=== PATIENT | female | born 1965 | race Caucasian/White ===

== ENCOUNTER 2020-12-28 08:30 | Outpatient (REF) | payer OTHER, SELFPAY ==
[2020-12-28 10:22] LABS: Hematocrit 40.6 % (37-47); Hemoglobin 13.7 g/dl (12.0-16.0); Mean Corpuscular HGB Conc 33.7 g/dl (31.0-35.0); Mean Corpuscular Hemoglobin 30.5 pg (27.0-33.0); Mean Corpuscular Volume 90.4 fL (80-98); Mean Platelet Volume 10.4 fL (9.4-12.3); Platelet Count 239 X10*3/uL (160-400); Red Blood Count 4.49 X10*6/uL (4.20-5.50); Red Cell Distribution Width 12.2 % (11.0-16.0); White Blood Count 5.7 X10*3/uL (4.8-10.8)
[2020-12-28 11:05] LABS: Alanine Aminotransferase 29 U/L (0-31); Albumin Level 4.8 g/dL (3.5-5.0); Alkaline Phosphatase 68 U/L (39-117); Anion Gap 15 (12-20); Aspartate Amino Transferase 19 U/L (5-31); Bilirubin Total 0.7 mg/dL (0.0-1.0); Blood Urea Nitrogen 14 mg/dL (9-16); Calcium 9.7 mg/dL (8.4-10.2); Carbon Dioxide 27 mmol/L (22-29); Chloride 102 mmol/L (96-108); Cholesterol 262 mg/dL; Estimated Glomerular Filt Rate > 60; Glucose Fasting 86 mg/dL (60-99); HDL Cholesterol 46 mg/dL; LDL Cholesterol Calculated 170 mg/dl; Magnesium 2.1 mg/dL (1.6-2.6); Potassium 4.7 mmol/L (3.3-5.1); Sodium 139 mmol/L (135-145); Total Protein 7.7 g/dL (6.5-8.0); Triglycerides 231 mg/dL
[2020-12-28 11:10] LABS: TSH reflex Free T4 1.11 uIU/mL (0.32-4.0); Vitamin D 25-OH Total 13.4 ng/mL (>30)
== END 2020-12-28 08:31 | disposition home or self-care (01) ==
LOC: HO.LAB 08:30
PROVIDERS: Visit Provider Internal Medicine
DX: Z00.00 Encounter for general adult medical examination without abnormal findings (principal); Z13.220 Encounter for screening for lipoid disorders; Z13.29 Encounter for screening for other suspected endocrine disorder
CPT/HCPCS: 36415; 80053; 80061; 82306; 83735; 84443; 85027

== ENCOUNTER → 2020-12-31 13:13 | Outpatient (BNVA) | payer OTHER, SELFPAY | PROVIDERS: PCP Internal Medicine; Visit Provider Nurse Practitioner Family ==

== ENCOUNTER 2021-02-05 17:00 | Outpatient (RCR) | payer OTHER, SELFPAY ==
--- NOTE | 2020-12-25 16:04 | MHC.PT.EP ---
[facility] [place] Office [place] Office [place] Office [address] Jose Castano [address] [phone] F: [phone] F: [phone] F: [phone] F: [phone] Physical Therapy Plan of Care Date of Evaluation: 12/25/20 Date of Surgery: Diagnosis: LEFT HIP BURSITIS Assessment: 55 YO FEMALE REF TO PT W 2 YR H/O LEFT HIP BURSITIS- INSIDUOUS ONSET PER Pt. 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 H/O LEFT KNEE SURG YRS AGO. OBJECTIVE FINDINGS: DECR ROM Lt HIP AND HS FLEXIB, (+) PELVIC ASYMM CREATING LLI, (+) TENDERNESS IN Lt ITB AND TROCH REGION. FUNCTIONALLY, Pt HAS LIMITED MONIQUE TO Lt SL, CARRYING OBJECTS W STAIR MGMT, INCR GAIT- SHE NOTES PAIN PERSISTS BUT SHE IS ABLE TO PERFORM ADLs, AND FUNCTIONAL SQUATS. Pt IS A GOOD PT CANDIDATE TO DEV HEP, PAIN MGMT, SELF-SX MGMT, AND IMPROVE FUNCTIONAL INDEP. Frequency and Duration: The patient will be seen 2x WK x 5 WKS Short Term Goals: Pt'S PAIN DECR TO 2-3/10 IN Lt HIP IN 2 WKS Pt DEMON IMPROVED PELVIC SYMMETRY W REDUCED LLI ON 2 WKS Pt DMEON IMPROVED/WFL HIP FLEXIB AND LEFT HS FLEXIB IN 2 WKS Sas Analyst Goals: Pt INDEP HEP FOR STRENGTH AND FLEXIB AND SELF- SX MGMT IN 5 WKS Pt RESUME REG ADLs AND SIMUL KAYAKING EVIDENT IN IMPROVED LEFT BY 8 POINTS (65/80- AT EVAL) IN 5 WKS Treatment Plan: Modalities to reduce pain, spasms and effusion. Manual therapy to restore motion and function. Therapeutic exercise to improve strength and flexibility. Neuromuscular re-education for posture and balance. Therapeutic activities to return to functional activities of daily living. Electronically signed by: Margaret Godinez, pt Please sign and return to therapist. Thank you for your referral.
--- NOTE | 2021-02-06 13:28 | MHC.PT.DC ---
[facility] [place] Office [place] Office [place] Office [address] Jose Castano [address] [phone] F: [phone] F: [phone] F: [phone] F: [phone] Physical Therapy Discharge Report Diagnosis: LEFT HIP BURSITIS Date of Surgery: Date of Evaluation: 12/25/20 Date of Discharge: 02/06/21 Treatments to Date: 9 Cancellations to Date: 0 No Shows to Date: 0 Discharge Status: Improved Function Independent with HEP Recommend MD Follow-up Discharge Summary: Pt HAS PROGRESSED IN PT- HER GAIT MECH, FLEXIBILITY, AND PELVIC STABILITY HAVE ALL IMPROVED- SHE HAS RESIDUAL GLUTE WEAKNESS AND ITB IRRITABILITY, ADDRESSING W HEP. Pt HAS RECENTLY INCR HER ACTIVITY LEVEL W YARDWORK, OUTDOOR CHORES AND NOTES EXACERBATION OF Lt HIP SXS- SHE IS CONCERNED ABOUT THE INTEGRITY OF HER Lt HIP- WE HAVE ENCOURAGED HEP COMPLIANCY TO ADDRESS WEAKNESS AND GRAD INCR IN MORE PHYSICALLY DEMANDING FUNCTIONAL TASKS. Pt PREFERS D/C FROM PT AND WILL F/U W MD. Electronically signed by: Margaret Godinez,PT Please sign and return to therapist. Thank you for your referral.
== END 2021-02-06 13:31 | disposition other institution (70) ==
LOC: HO.PTCHIC 17:00
PROVIDERS: PCP Internal Medicine; Visit Provider Internal Medicine
DX: M71.9 Bursopathy, unspecified (principal)
CPT/HCPCS: 97110; 97140; 97161

== ENCOUNTER 2021-02-11 07:29 | Day surgery (SDC) | payer OTHER, SELFPAY ==
--- NOTE | 2021-02-06 14:45 | HO.ANESPROP2 ---
Documented by User: Marely Vogt 02/06/21 14:45 HPI - Anesthesia Eval Consult details Narrative: 55yo F for Colonoscopy PMFSH Active Problems Active Problems: All Active Problems (Updated 01/07/21 @ 13:57 by Nanda Mclalister MD) Vitamin D deficiency (Acute) Hyperlipidemia (Acute) Diarrhea (Acute) Bursitis (Acute) Mammogram normal (Acute) Normal Pap smear (Acute) Annual physical exam (Acute) Past Medical History Medical History Annual physical exam Bursitis Diarrhea GERD (gastroesophageal reflux disease) Hyperlipidemia Mammogram normal Normal Pap smear Vitamin D deficiency Family History Family History Father No problems noted. 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 Allergies Allergy/AdvReac Type Severity Reaction Status Date / Time No Known Allergies Allergy Verified 02/04/21 13:22 Exam Airway Mallampati Class: I (Edentulous) TM Dist: >3cm Neck ROM: Full Denture: Upper and Lower Loose/Missing/Broken Teeth: Yes, Upper and Lower Heart: RRR Lungs: CTA Assessment and Plan Assessment Anesthesia Assessment: Anesthesia Plan Discussed and Chart Reviewed Final Anesthetic Review NPO: Yes ASA Class: II Final Preanesthetic Review: Meds/Allgs Chart Reviewed, Consent Obtained/Reviewed and Anes Risks/Benef Reviewed Patient Risk: Low Procedure Risk: Low Anesthetic Plan Anesthetic Plan: MAC: Disposition: Standard PACU
[2021-02-11 07:57] VITALS: BP 149/62; PULSE 67; RESP 16; TEMP 36.9; O2SAT 97; BMI 29.3
[2021-02-11] MEDS: Lactated Ringers 1,000 ML 100 ML IVCONT (08:13)
--- NOTE | 2021-02-11 08:19 | P.HPSUR_ITS ---
Pre-Procedural Eval Section B Chief Complaint: screening Details of Present Illness: Colon cancer screening Diarrhea since GB out, mostly postprandial Relevant Family History (Specify if Yes): No Relevant Social History: None Present Medications: see Short Stay Collaborative assessment Medical History: Significant History (GERD) History of Previous Operations: No relevant previous surgery Allergies: Allergies Allergy/AdvReac Type Severity Reaction Status Date / Time No Known Allergies Allergy Verified 02/04/21 13:22 Review of Systems Sugical H&P ROS: Negative: Constitution, Cardiovascular, Respiratory, Gastrointestinal and Musculoskeletal Exam Surgical H&P Exam: Normal: HEENT, Normal: Heart, Normal: Lungs, Normal: Extremities and Normal: Abdomen and Significant Findings: Skin (pressure induced erythema ? histamine release.) Plan Diagnosis/Plan: Unchanged I have reviewed the history and physical and performed a pertinent physical examination on my patient. No changes have occurred unless sp ecified.YES
[2021-02-11 08:55] VITALS: BP 117/52; PULSE 69; RESP 18; TEMP 37.2; O2SAT 98
--- NOTE | 2021-02-11 08:56 | PM.OP ---
Brief Operative Note Date of Service: 02/11/21 Pre-op diagnosis: Colon cancer screening Hx of diarrhea--? bile salt induced Post-op diagnosis: other (Diverticulosis) Procedure: Colonoscopy with biopsies R & L colon Implants: NONE Surgeon: Connie Scherer MD Anesthesia: MAC (md Jose) Estimated blood loss (mL): 5 Pathology: other (Right colon, Left colon) Condition: stable Disposition: PACU
[2021-02-11 09:10] VITALS: BP 137/62; PULSE 69; RESP 16; TEMP 37.2; O2SAT 97
--- NOTE | 2021-02-11 12:35 | W.PM.OPN ---
Operative Note Operative Note Date of Service: 02/11/21 Narrative: Pre-op diagnosis: Colon cancer screening Hx of diarrhea--? bile salt induced Post-op diagnosis: Diverticulosis/Hx of diarrhea Procedure: Colonoscopy with biopsies R & L colon Implants: NONE Surgeon: Connie Scherer MD Anesthesia: MAC (MD Jose) FINDINGS: CYNTHIA-Adequate sphincter tone. Adult slim colonoscope was introduced without difficulty. It was advanced from rectosigmoid on up. In sigmoid area a number diverticuli were seen. There was moderate residual of turbid fluid requiring additional flushing and suctioning of about 3-500cc of fluid. Destination was made in the cecum. Appendiceal orifice, ileocecal valve were seen. No mucosal Abnormalities had been seen. Slow withdrawal of scope, good rotational views no new findings were noted. ARV was clear. Estimated blood loss (mL): 5 Pathology: other (Right colon, Left colon) Condition: stable Disposition: PAC PLAN: REPEAT ASYMPTOMATIC SCREENING IN 10 YRS. OFFICE VISIT TO BE OFFERED TO REVIEW BX AND ADDRESS PATIENTS DIARRHEAL EPISODES IF SHE WOULD LIKE.
== END 2021-02-11 09:50 | disposition home or self-care (01) ==
PROVIDERS: PCP Internal Medicine; Visit Provider Internal Medicine Gastroenterology
PROC: 0DJD8ZZ Inspection of Lower Intestinal Tract, Via Natural or Artificial Opening Endoscopic (ICD-10-PCS; CPT 45378; principal; 2021-02-11 08:30)
DX: Z12.11 Encounter for screening for malignant neoplasm of colon (principal); K57.30 Diverticulosis of large intestine without perforation or abscess without bleeding; K21.9 Gastro-esophageal reflux disease without esophagitis; Z90.49 Acquired absence of other specified parts of digestive tract; Z79.899 Other long term (current) drug therapy; Z87.891 Personal history of nicotine dependence
CPT/HCPCS: 45380; 88305

== ENCOUNTER 2021-02-25 07:52 | Outpatient (REF) | payer OTHER, SELFPAY ==
--- NOTE | ~2021-02-25 | XR_ITS ---
EXAMINATION: XR HIP, LEFT CLINICAL INFORMATION: Pain left hip. COMPARISON: None TECHNIQUE: Two views of the left hip. AP view of pelvis. FINDINGS: AP PELVIS: There is mild loss of bilateral hip joint space without bony erosive changes. The soft tissues are normal. The SI joints are normal. There is a solitary surgical staple in the left pelvis. No soft tissue abnormality is seen. LEFT HIP: AP and frog-leg view left hip reveals no fracture, dislocation or bony erosive changes. No loose body is seen. Minimal loss of left hip joint space. The soft tissues are normal. XR/XR hip LT w PEL1V IMPRESSION: Minimal loss of bilateral hip joint spaces but no bony erosive changes or loose bodies. There is no acute fracture or dislocation in the left hip or in the pelvic bones.
== END 2021-02-25 07:53 | disposition home or self-care (01) ==
LOC: HO.HOSX 07:52
PROVIDERS: Visit Provider Orthopaedic Surgery
DX: M25.552 Pain in left hip (principal); M70.62 Trochanteric bursitis, left hip
CPT/HCPCS: 20610; 73502; 99202; J1040

== ENCOUNTER → 2021-03-07 12:49 | Outpatient (BNVA) | payer OTHER, SELFPAY | PROVIDERS: PCP Internal Medicine; Visit Provider Nurse Practitioner Family ==

== ENCOUNTER → 2021-04-21 12:10 | Outpatient (BNVA) | payer OTHER, SELFPAY | PROVIDERS: PCP Internal Medicine; Visit Provider Nurse Practitioner Family ==

== ENCOUNTER 2022-01-23 07:29 | Outpatient (REF) | payer OTHER, SELFPAY ==
--- NOTE | ~2022-01-23 | XR_ITS ---
EXAMINATION: XR SHOULDER, LEFT CLINICAL INFORMATION: Left shoulder pain. COMPARISON: None TECHNIQUE: Three views of the left shoulder. FINDINGS: The bones and soft tissues are normal. No fracture. Glenohumeral and acromioclavicular alignment is anatomic with normal joint space. No abnormal soft tissue calcifications. XR/XR shoulder LT min 2V IMPRESSION: Unremarkable radiographic appearance of the left shoulder.
== END 2022-01-23 07:30 | disposition home or self-care (01) ==
LOC: HO.HOSX 07:29
PROVIDERS: Visit Provider Physician Assistant
DX: M75.82 Other shoulder lesions, left shoulder (principal)
CPT/HCPCS: 20610; 73030; 99202; J1040

== ENCOUNTER → 2022-03-27 11:20 | Outpatient (BNVA) | payer OTHER, SELFPAY | PROVIDERS: PCP Internal Medicine; Visit Provider Physician Assistant | DX: M75.82 Other shoulder lesions, left shoulder (principal) | CPT/HCPCS: 99212 ==

== ENCOUNTER 2022-04-15 19:34 | Outpatient (REF) | payer OTHER, SELFPAY ==
--- NOTE | ~2022-04-15 | MR_ITS ---
EXAMINATION: MRI SHOULDER WITHOUT CONTRAST, LEFT CLINICAL INFORMATION: Left shoulder pain and decreased range of motion. COMPARISON: Left shoulder radiographs dated 01/23/2022. TECHNIQUE: Multisequence MR imaging of the left shoulder was obtained without contrast on a high-field strength scanner. FINDINGS: ROTATOR CUFF: Moderate supraspinatus tendinosis with posterior bursal surface partial tearing measuring 1.1 x 1.4 cm (AP by ML). No full-thickness rotator cuff tendon tear. No muscle atrophy or fatty infiltration. BICEPS: Normal. CORACOACROMIAL ARCH: The undersurface of the acromion is minimally curved with no subacromial spur. Moderate acromioclavicular osteoarthritis. LABRUM/CAPSULE: No displaced labral tear. Intact joint capsule. GLENOHUMERAL JOINT/MARROW: Mild articular cartilage signal heterogeneity with small marginal osteophytes. Trace joint effusion. MR/MR shoulder LT wo con IMPRESSION: 1. Moderate supraspinatus tendinosis with bursal surface partial tearing measuring 1.1 x 1.4 cm (AP by ML). No full-thickness rotator cuff tendon tear. 2. Moderate acromioclavicular osteoarthritis. 3. Mild glenohumeral osteoarthritis and trace joint effusion.
== END 2022-04-15 19:35 | disposition home or self-care (01) ==
LOC: HO.MRI 19:34
PROVIDERS: Visit Provider Physician Assistant
DX: S46.002A Unspecified injury of muscle(s) and tendon(s) of the rotator cuff of left shoulder, initial encounter (principal)
CPT/HCPCS: 73221

== ENCOUNTER 2022-04-21 14:06 | Outpatient (REF) | payer OTHER, SELFPAY ==
[2022-04-24 19:06] LABS: HPV mRNA E6/E7 rflx Not Detected (Not Detected)
== END 2022-04-21 14:07 | disposition home or self-care (01) ==
LOC: HO.LAB 14:06
PROVIDERS: Visit Provider Advanced Practice Midwife
DX: Z01.419 Encounter for gynecological examination (general) (routine) without abnormal findings (principal); Z11.51 Encounter for screening for human papillomavirus (HPV)
CPT/HCPCS: 87624; 88142

== ENCOUNTER → 2022-04-23 08:35 | Outpatient (BNVA) | payer OTHER, SELFPAY | PROVIDERS: PCP Internal Medicine; Visit Provider Orthopaedic Surgery | DX: M67.912 Unspecified disorder of synovium and tendon, left shoulder (principal) | CPT/HCPCS: 99212 ==

== ENCOUNTER 2022-06-26 10:11 | Outpatient (REF) | payer OTHER, SELFPAY ==
--- NOTE | ~2022-06-26 | MM_ITS ---
EXAMINATION: MM SCREENING DIGITAL BREAST TOMOSYNTHESIS, BILATERAL CLINICAL INFORMATION: Screening. Asymptomatic. The lifetime risk of breast cancer based on the Tyrer-Cuzick Model is 5%. COMPARISON: Outside mammography: 05/16/2020, 03/10/2019, 03/06/2019 ([facility]) TECHNIQUE: Digital breast tomosynthesis is performed in both the craniocaudal and mediolateral oblique views along with computer-aided detection (CAD). Synthesized 2D images are generated from the tomosynthesis. FINDINGS: There are scattered areas of fibroglandular density (ACR BI-RADS breast composition Category b). There are no significant masses, abnormal calcifications, or other abnormalities. A small cyst mid outer left breast has resolved. Parenchymal pattern is otherwise similar to prior studies. There is no developing density or architectural abnormality. The axilla are similar to prior studies. Skin contours are unremarkable. No significant changes. MM/MM tomosynthesis screening BI IMPRESSION: No mammographic evidence of malignancy. ASSESSMENT: BI-RADS 2: Benign RECOMMENDATION: Routine annual mammography screening. This patient's information was entered into a reminder system with a target due date for their next mammogram.
== END 2022-06-26 10:12 | disposition home or self-care (01) ==
LOC: HO.MAMMO 10:11
PROVIDERS: Visit Provider Obstetrics & Gynecology
DX: Z12.31 Encounter for screening mammogram for malignant neoplasm of breast (principal)
CPT/HCPCS: 77063; 77067

== ENCOUNTER 2024-03-04 07:35 | Outpatient (REF) | payer OTHER, SELFPAY ==
--- NOTE | ~2024-03-04 | XR_ITS ---
EXAMINATION: XR CHEST CLINICAL INFORMATION: Rule out nodules. COMPARISON: CT chest 05/10/2020. Chest radiograph 10/28/2016 and 08/13/2006. TECHNIQUE: 2 views of the chest were obtained. FINDINGS: There is no gross pneumothorax. Heart size is normal. Lung volumes are low. No pleural effusion. Surgical clips in the upper abdomen. Mild degenerative changes in the thoracic spine. Increased mild hazy opacities at the left lung base may represent an infectious/inflammatory process. XR/XR chest 2V IMPRESSION: Increased mild hazy opacities at the left lung base may represent an infectious/inflammatory process.
--- NOTE | ~2024-03-04 | XR_ITS ---
EXAMINATION: XR FINGER, RIGHT CLINICAL INFORMATION: Rule out foreign body second digit. COMPARISON: None available. TECHNIQUE: 3 views of the right second digit. Radiopaque marker placed by technologist to indicate area of concern indicated by the patient along the distal tuft of the second digit. FINDINGS: Moderate degenerative changes in the first carpometacarpal joint with joint space narrowing and hypertrophic change. Tiny ossific/calcific fragment overlies the first carpometacarpal joint. Moderate degenerative changes with hypertrophic change and joint space narrowing in the DIP and PIP joints of the second digit. Soft tissue swelling of the second digit. No radiopaque foreign body identified in the soft tissues of the second digit. No displaced fracture appreciated in the second digit. XR/XR finger RT min 2V IMPRESSION: 1. Moderate degenerative changes in the first carpometacarpal joint. 2. Moderate degenerative changes in the DIP and PIP joints of the second digit. 3. No radiopaque foreign body identified in the soft tissues of the second digit. 4. No displaced fracture appreciated in the second digit. 5. Recommend follow up imaging in 10-14 days if fracture is suspected.
== END 2024-03-04 07:36 | disposition home or self-care (01) ==
LOC: HO.MAMMO 07:35
PROVIDERS: PCP Internal Medicine; Visit Provider Internal Medicine
DX: Z12.31 Encounter for screening mammogram for malignant neoplasm of breast (principal); Z87.891 Personal history of nicotine dependence; M19.041 Primary osteoarthritis, right hand
CPT/HCPCS: 71046; 73140; 77063; 77067

== ENCOUNTER → 2024-03-04 07:45 | Outpatient (BNV) | payer OTHER, SELFPAY | PROVIDERS: PCP Internal Medicine; Visit Provider Radiology Diagnostic Radiology | DX: Z12.31 Encounter for screening mammogram for malignant neoplasm of breast (principal) | CPT/HCPCS: 77063; 77067 ==

== ENCOUNTER 2024-03-10 09:37 | Outpatient (AMB) | payer OTHER, SELFPAY ==
--- NOTE | 2024-03-10 09:56 | MHC.OFFVIS ---
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 She has a partial-thickness tear of her right supraspinatus. She has pain with daily activity, which she describes as a burning ache, that worsens with overhead activity. She takes NSAIDs for pain relief and attended PT several years ago. She received a steroid injection on 01/23/22, which gave some relief. Patient reports that her shoulder pain is worsening, the last injection has not helped her. Now that summer is approaching she is ready to move forward with surgical intervention as she has the summer off. Allergies No Known Allergies Allergy (Verified 04/21/22 13:46) HPI HPI OV - Left Shoulder RTC Dysfunction: Details: Anna is a 58-year-old woman with a history of a left rotator cuff tear. 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 She is tried injections and physical therapy and continues to have pain at night and pain with overhead activity. [facility] Medical History Shoulder pain, left Vitamin D deficiency Hyperlipidemia Diarrhea GERD (gastroesophageal reflux disease) Bursitis Mammogram normal Normal Pap smear Annual physical exam Surgical History Hx of colonoscopy Hx of laparoscopy Hx of cholecystectomy History of knee surgery History of foot surgery History of shoulder surgery Hx of prior ablation treatment Family History Father No problems noted. Mother Lung cancer Social History Household Members: Significant Other Household Members Other:: [employer], single, 2 adult children, son in [place] Alcohol intake: current Alcohol intake frequency: a few times a week Patient Tobacco Use Status: Former Tobacco user Years Smoked: 15 Current occupational status: employed Current occupation: [employer] Sexual orientation: Straight/Heterosexual Gender identity: Female Physical Exam Const General: cooperative, healthy appearing, no acute distress and well groomed Orientation/consciousness: oriented to person and oriented to place HEENT Head: Yes normal to inspection, Yes normocephalic and Yes atraumatic Eyes General: appearance normal, both eyes and all related structures Alignment and Position: alignment normal Conjunctivae: conjunctivae normal EOM: EOMs intact bilaterally Neck Neck: Yes normal visual inspection and Yes trachea midline Resp Other: No rerpiratory distress Effort & Inspection: normal respiratory effort and able to speak in complete sentences Cardio Other: Palpable radial pulse with no appreciable rythmic abnormalities GI Other: No abdominal distension Back/Spine/Pelvis Cervical Spine: normal cervical lordosis and cervical ROM normal Skin General skin exam: no rashes or lesions noted Neuro General: oriented to person, oriented to place and gait normal Extrem Other: Patient has 4+/5 empty can positive Begum and Neer. External rotation 45 degrees abduction to 90 and forward flexion to 130. She is limited internal rotation. She has a positive [place]'s and tenderness to palpation over the bicipital groove. Results Reviewed Results Reviewed: I personally reviewed relevant radiograph 1. Moderate supraspinatus tendinosis with bursal surface partial tearing measuring 1.1 x 1.4 cm (AP by ML). No full-thickness rotator cuff tendon tear. 2. Moderate acromioclavicular osteoarthritis. 3. Mild glenohumeral osteoarthritis and trace joint effusion. Assessment & Plan Assessment & Plan (1) Rotator cuff tear, left: Code(s): M75.102 - Unspecified rotator cuff tear or rupture of left shoulder, not specified as traumatic Category: Medical Plan: This is a 58-year-old woman with a high-grade partial-thickness rotator cuff tear and additional internal derangement of the shoulder appeared this been going on for years. She is left-hand dominant and can not function. She feels limited in her daily activities and is not sleeping at night. I recommend arthroscopic rotator cuff repair. I discussed this with her including the patho anatomy and the expected postop recovery time.I discussed the risks benefits and alternatives including but not limited to the risk of pain, infection, stiffness, need for further surgery as well as potential medical complications such as blood clots, pulmonary embolism and cardiac complications. She expressed understanding and we will proceed forward accordingly. Coding Level of Care Code Est Pt Level 4 (81772) Diagnoses Rotator cuff tear, left M75.102
== END 2024-03-10 10:32 | disposition home or self-care (01) ==
PROVIDERS: PCP Internal Medicine; Visit Provider Orthopaedic Surgery
DX: M75.102 Unspecified rotator cuff tear or rupture of left shoulder, not specified as traumatic (principal)
CPT/HCPCS: 99214

== ENCOUNTER → 2024-03-10 09:37 | Outpatient (BNVA) | payer MEDICAID, SELFPAY | PROVIDERS: PCP Internal Medicine; Visit Provider Orthopaedic Surgery | DX: M75.102 Unspecified rotator cuff tear or rupture of left shoulder, not specified as traumatic (principal) | CPT/HCPCS: 99212 ==

== ENCOUNTER 2024-04-06 09:45 | Outpatient (AMB) | payer OTHER, SELFPAY ==
--- NOTE | 2024-04-06 10:08 | MHC.OFFVIS ---
Vital Signs 04/06/24 10:10 Height 5 ft 6 in Weight 186 lb BMI 30.0 Handedness Left Intake Visit Reasons: Preop LT RTC 04/12/24 NE Intake Note: Anna is a 58 year old left hand dominant female who presents today for a pre op appointment s/p LT RTC 04/12/24 NE. Patient was fitted for the Ultra Sling in the office. Allergies No Known Allergies Allergy (Verified 04/06/24 10:09) HPI HPI Preop LT RTC 04/12/24 NE: Details: 58-year-old left hand dominant female who presents in the office today for her preoperative history and physical exam prior to a left shoulder rotator cuff repair to be performed on 04/12/[address] Jamin Flor. Patient has no known allergy history. Patient is not currently taking any medication. 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 Sexual orientation: Straight/Heterosexual Gender identity: Female Review of Systems Const All systems reviewed & are unremarkable except as noted in HPI and below Physical Exam Vital Signs: BMI result Body Mass Index 30.0 Const General: cooperative, healthy appearing, comfortable, no acute distress, well developed, alert and awake Orientation/consciousness: patient oriented x3 HEENT Head: Yes normal to inspection, Yes normocephalic and Yes atraumatic Eyes General: appearance normal, both eyes and all related structures Alignment and Position: alignment normal Conjunctivae: conjunctivae normal EOM: EOMs intact bilaterally Neck Neck: Yes normal visual inspection and Yes no lymphadenopathy Resp Other: No rerpiratory distress Effort & Inspection: normal respiratory effort and able to speak in complete sentences Cardio Other: Palpable radial pulse with no appreciable rythmic abnormalities Rate: regular rate Peripheral pulses: Peripheral pulses 2+ throughout GI Other: No abdominal distension Inspection: Yes normal to inspection Palpation (GI): Soft to palpation Back/Spine/Pelvis Cervical Spine: normal cervical lordosis and cervical ROM normal Skin General skin exam: no rashes or lesions noted Neuro General: patient oriented x3 Extrem Other: Left shoulder: Skin is clean, dry, and intact. Patient has 4+/5 empty can positive Begum and Neer. External rotation 45 degrees abduction to 90 and forward flexion to 130. She is limited internal rotation. She has a positive Lycoming's and tenderness to palpation over the bicipital groove. Psych Mental Status: mental status grossly normal Assessment & Plan Assessment & Plan (1) Rotator cuff tear, left: Comment: Isaura, partner [phone] Code(s): M75.102 - Unspecified rotator cuff tear or rupture of left shoulder, not specified as traumatic Category: Medical Plan Ms. Espinoza is a 58-year-old left hand dominant female who presents in the office today for her preoperative history and physical exam prior to a left shoulder rotator cuff repair to be performed on 04/12/[address] Jamin Flor. Patient has no known allergy history. Patient is not currently taking any medication. 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 We discussed the risks, benefits and alternatives to the surgery and the rehabilitation course. The risks include infection, bleeding, nerve injury, ongoing pain, swelling, and stiffness, perioperative risk of injury to bones and soft tissues, and blood clots. I have answered all questions and with their understanding they have consented to move forward with a left shoulder rotator cuff repair to be performed on 04/12/[address] Jamin Flor. Post operative medications were sent to the pharmacy, oxycodone-acetaminophen 5-325 mg (Percocet) PO Q4-6H PRN, quantity 42 tabs for 7 days and morphine ER 15 mg (MS Contin) PO Q12H PRN, quantity 6 tabs for 3 days, while in the office today. The patient was instructed that she should obtain the prescription prior to surgery but should not consume until after the procedure; as these should only be taken for post operative pain management. Should the patient take these medications before surgery, a refill will not be sent to the pharmacy until their scheduled refill date. Follow-up will be at the post operative appointment on 04/20/2024 at 2:00 pm, or sooner if needed. Patient was fitted for the Ultra sling while in the office today. Isaura, partner, , please call after surgery. Medications: New morphine ER (MS Contin) Partial Fill upon patient request. 15 mg PO Q12H 3 days 6 tabs 0RF oxycodone-acetaminophen 5-325 mg (Percocet) Partial Fill upon patient request. 1 tab PO Q4-6H 7 days PRN 42 tabs 0RF pain Patient Instructions: Scribed by Emily Fernando chief medical director, for Joceline Parish PA-C on 04/06/2024 at 9:48 am, EST. Coding Level of Care Code Global (88426) Diagnoses Rotator cuff tear, left M75.102
== END 2024-04-06 10:42 | disposition home or self-care (01) ==
PROVIDERS: PCP Internal Medicine; Visit Provider Physician Assistant
DX: M75.102 Unspecified rotator cuff tear or rupture of left shoulder, not specified as traumatic (principal)
CPT/HCPCS: 99024

== ENCOUNTER → 2024-04-06 09:45 | Outpatient (BNVA) | payer OTHER, SELFPAY | PROVIDERS: PCP Internal Medicine; Visit Provider Physician Assistant | DX: M75.102 Unspecified rotator cuff tear or rupture of left shoulder, not specified as traumatic (principal) | CPT/HCPCS: 99212 ==

== ENCOUNTER 2024-04-12 05:57 | Day surgery (SDC) | payer OTHER, SELFPAY ==
--- NOTE | 2024-04-10 15:05 | HO.ANESPROP2 ---
Documented by User: Marely Vogt NP 04/10/24 15:06 HPI - Anesthesia Eval Consult details Narrative: 58yo F for Left Arthroscopic Rotator Cuff Repair PMFSH Active Problems Active Problems: All Active Problems Rotator cuff tear, left (Acute) Rotator cuff dysfunction (Acute) Encounter for annual routine gynecological examination (Acute) Tendonitis of left rotator cuff (Acute) Shoulder pain, left (Acute) Puncture wound (Acute) Trochanteric bursitis, left hip (Acute) Vitamin D deficiency (Acute) Hyperlipidemia (Acute) Diarrhea (Acute) Bursitis (Acute) Mammogram normal (Acute) Normal Pap smear (Acute) Annual physical exam (Acute) Past Medical History Medical History Shoulder pain, left Vitamin D deficiency Hyperlipidemia Diarrhea GERD (gastroesophageal reflux disease) Bursitis Mammogram normal Normal Pap smear Annual physical exam Family History Family History Father No problems noted. 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, 2 adult children, son in [place] Alcohol intake: current Alcohol intake frequency: a few times a week Patient Tobacco Use Status: Current everyday Tobacco user Years Smoked: 15 Use of substances other than those prescribed or required for medical reasons: No Are you DNR?: No Advance Directives: No Advance Directives Information Provided: Yes Current occupational status: employed 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 Sexual orientation: Straight/Heterosexual Gender identity: Female Meds Allergies Allergy/AdvReac Type Severity Reaction Status Date / Time No Known Allergies Allergy Verified 04/06/24 10:09 Home Medications ?Medication ?Instructions ?Recorded ?Confirmed ?Last Taken ?Type atorvastatin 20 mg tablet 20 mg PO DAILY 04/06/24 Unknown History Exam Height,Weight and Vital Signs: Height 5 ft 6 in Weight 84.368 kg Assessment and Plan Assessment Anesthesia Assessment: Chart Reviewed Documented by User: Nimisha Suggs MD 04/12/24 08:00 PMFSH Past Medical History Medical History Shoulder pain, left Vitamin D deficiency Hyperlipidemia Diarrhea GERD (gastroesophageal reflux disease) Bursitis Mammogram normal Normal Pap smear Annual physical exam Family History Family History Father No problems noted. 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, 2 adult children, son in [place] Alcohol intake: current Alcohol intake frequency: a few times a week Patient Tobacco Use Status: Current everyday Tobacco user Years Smoked: 15 Use of substances other than those prescribed or required for medical reasons: No Are you DNR?: No Advance Directives: No Advance Directives Information Provided: Yes Current occupational status: employed 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 Sexual orientation: Straight/Heterosexual Gender identity: Female Meds Allergies Allergy/AdvReac Type Severity Reaction Status Date / Time No Known Allergies Allergy Verified 04/06/24 10:09 Home Medications ?Medication ?Instructions ?Recorded ?Confirmed ?Last Taken ?Type atorvastatin 20 mg tablet 20 mg PO DAILY 04/06/24 Unknown History Exam Airway Mallampati Class: II TM Dist: >3cm Neck ROM: Full Denture: Upper and Lower Heart: rrr Lungs: cta Assessment and Plan Assessment Anesthesia Assessment: Anesthesia Plan Discussed Final Anesthetic Review Family History of Problems with Anesthesia: No History of Problems with Anesthesia: No NPO: Yes ASA Class: III Final Preanesthetic Review: No Changes in Pt Med Stat, Meds/Allgs Chart Reviewed, Consent Obtained/Reviewed and Anes Risks/Benef Reviewed Patient Risk: Intermediate Procedure Risk: Intermediate Anesthetic Plan Anesthetic Plan: GA Disposition: Standard PACU
[2024-04-12] VITALS (11 sets, daily range): BP systolic 111–128; BP diastolic 45–70; PULSE 47–74; RESP 16–18; TEMP 36.7–37.3; O2SAT 94–100; BMI 30.7
--- NOTE | 2024-04-12 | ECG_ITS ---
Test Reason : postop Blood Pressure : / mmHG Vent. Rate : 064 BPM Atrial Rate : 064 BPM P-R Int : 210 ms QRS Dur : 094 ms QT Int : 434 ms P-R-T Axes : 067 031 052 degrees QTc Int : 447 ms Sinus rhythm with 1st degree A-V block with occasional Premature ventricular complexes Otherwise normal ECG When compared with ECG of 10-MAY-2020 18:14, DE interval has increased Referred By: Nimisha Suggs Electronically Signed By:Benito Gabriel
[2024-04-12] MEDS: Lactated Ringers 1,000 ML 100 ML IVCONT (06:40)
--- NOTE | 2024-04-12 07:14 | MHC.SHP ---
Pre-Procedural Eval Section A - 24 Hr Update-Section A only Date of Service: 04/12/24 The patient is an INPATIENT: No Changes since office visit: No Cold of Flu in the past 2 weeks, No New Medical Problems, No Changes in Medication and No Patient answered all questions The patient has been examined within 24 hours of the surgical procedure. The History & Physical has been completed within 30 days and I have reviewed it.: Yes Section B - Complete if H&P > 30 days Chief Complaint: Unspecified rotator cuff tear or rupture of left Allergies: Allergies Allergy/AdvReac Type Severity Reaction Status Date / Time No Known Allergies Allergy Verified 04/06/24 10:09 Plan I have reviewed the history and physical and performed a pertinent physical examination on my patient. No changes have occurred unless specified. Time Spent With Patient Time: Total time managing care of this patient today ____ minutes.
--- NOTE | 2024-04-12 09:11 | P.BOP_ITS ---
Brief Operative Note Date of Service: 04/12/24 Pre-op diagnosis: left shoulder RTC tear Post-op diagnosis: same Procedure: Left shoulder rtc repair Implants: Dinh and Nephew 4.75 double loaded medial row x 1 and 5.0 knotless Helacoil x 2 Surgeon: Jamin Flor MD Anesthesia: GETA and regional Was an Data Analyst Etl Developer used for this Procedure?: Yes Data Analyst Etl Developer: Joceline Parish Estimated blood loss (mL): 10 IV fluids (mL): 850 Pathology: none sent Condition: stable Disposition: PACU
[2024-04-12] MEDS: Ketorolac Tromethamine 30 MG/ML VIAL IVPUSH (10:18)
--- NOTE | 2024-04-19 09:49 | P.OP_ITS ---
Operative Note Operative Note Date of Service: 04/12/24 Narrative: Date of Service: 04/12/24 Pre-op diagnosis: left shoulder RTC tear Post-op diagnosis: same Procedure: Left shoulder rtc repair Implants: [employer] 4.75 double loaded medial row x 1 and 5.0 knotless Helacoil x 2 Surgeon: Jamin Flor MD Anesthesia: GETA and regional Was an Residential Property Tax Appraiser used for this Procedure?: Yes Residential Property Tax Appraiser: Joceline Parish Estimated blood loss (mL): 10 IV fluids (mL): 850 Pathology: none sent Condition: stable Disposition: PACU Procedure in detail: Patient was brought to the operating room and placed the the beach chair position. All bony prominences were well padded and the limb was prepped and draped in standard sterile fashion. A time out was called to identify proper site, proper procedure and proper surgeon. IV antibiotics per weight were administered. I began by making a posterolateral stab incision with a 15 blade. A blunt trochar was placed into the glenohumeral joint and I insufflated the joint with saline and a 30 degree arthroscope was placed. I established an out side- in anterior portal just distal to the biceps tendon. I then began my inspection of the glenohumeral joint. There was a small degenerative SLAP tear at thte biceps anchor and there were minimal cartilage changes at the inferior glenoid with no humeral head changes. There was a undersurface RTC tear that was partial thickness. The subcapularis was intact. I debrided the loose cartilage of the glenoid and the degenerative labral tearing. I placed a spinal needle through the undersurface tear and threaded this with a marking suture. The spinal needle was removed and I entered the subacromial space. A direct lateral portal was then established and I performed a bursectomy. The cuff was then examined. There was a yelena grade partial tear at the location of the undersurface tear. Together this made for a high grade partial thickness supraspinatus tear. I used a shaver to complete the tear and then I placed one medial row double loaded anchor after using a tap just adjacent to the articular cartilage and then brought the suture limbs (4) through the medial cuff. I used a owen to debride the bare area down to bleeding bone and, using a cross bridge configuration, brought 2 limbs to each of two lateral 5.0 anchors. This re-approximated the cuff anatomy anatomically. I used a owen to perform a small (4mm) subacromial decompression. Once I was satisfied with the repair final images were captured and I removed all instrumentation. Portals were closed with nylon. Patient was placed in an abduction sling, extubated and brought to the recovery room in stable condition. There were no known complications.
== END 2024-04-12 10:57 | disposition home or self-care (01) ==
LOC: HO.SSS 05:57
PROVIDERS: PCP Internal Medicine; Visit Provider Orthopaedic Surgery
PROC: (CPT 29827; principal; 2024-04-12 07:30)
DX: M75.102 Unspecified rotator cuff tear or rupture of left shoulder, not specified as traumatic (principal); M25.512 Pain in left shoulder; M24.112 Other articular cartilage disorders, left shoulder; E55.9 Vitamin D deficiency, unspecified; M71.9 Bursopathy, unspecified; E78.5 Hyperlipidemia, unspecified; K21.9 Gastro-esophageal reflux disease without esophagitis; Z90.49 Acquired absence of other specified parts of digestive tract; Z98.890 Other specified postprocedural states; Z87.891 Personal history of nicotine dependence
CPT/HCPCS: 29827; 29826; 93005; C1713; J0131; J0171; J0665; J0690; J1100; J1885; J2250; J2405; J2704; J3010

== ENCOUNTER → 2024-04-12 05:57 | Outpatient (BNV) | payer OTHER, SELFPAY | PROVIDERS: PCP Internal Medicine; Visit Provider Orthopaedic Surgery | DX: M75.112 Incomplete rotator cuff tear or rupture of left shoulder, not specified as traumatic (principal) | CPT/HCPCS: 29827 ==

== ENCOUNTER → 2024-04-12 09:27 | Outpatient (BNV) | payer OTHER, SELFPAY | PROVIDERS: PCP Internal Medicine; Visit Provider Internal Medicine Cardiovascular Disease | DX: I44.0 Atrioventricular block, first degree (principal); I49.3 Ventricular premature depolarization | CPT/HCPCS: 93010 ==

== ENCOUNTER 2024-04-17 08:27 | Emergency (ER) | payer OTHER, SELFPAY ==
--- NOTE | ~2024-04-17 | CT_ITS ---
EXAMINATION: CT ABDOMEN AND PELVIS WITHOUT CONTRAST CLINICAL INFORMATION: Constipation with postop severe abdominal and rectal COMPARISON: CT angiogram chest 05/10/2020 CT abdomen pelvis 11/15/2006 TECHNIQUE: Multidetector volumetric imaging was performed from the superior aspect of the liver through the pubic symphysis. Sagittal and coronal reformatted images were obtained on the technologist's workstation. This CT examination was performed using dose optimization techniques as appropriate, variously including the following: *Automated exposure control *Adjustment of mA and/or kV according to patient size (this includes techniques or standardized protocols for targeted exams where dose is matched to indication/reason for exam; i.e. extremities or head) *Use of iterative reconstruction technique DLP: 761 mGy-cm FINDINGS: LUNG BASES: Multiple calcified granulomas are seen. Bronchial thickening is noted. LIVER, GALLBLADDER, AND BILIARY TREE: The liver is enlarged at 19.3 cm in cephalocaudad dimension and demonstrates decreased attenuation consistent with hepatic steatosis. No focal hepatic lesion or biliary ductal dilatation is present. The gallbladder is absent and surgical clips are present around the antony hepatis. PANCREAS: Unremarkable. SPLEEN: Spleen is enlarged at 13.4 cm. ADRENAL GLANDS: There is a left adrenal mass seen arising from the lateral measuring 2.5 x 2.0 x 2.7 cm. This was present on the 2006 CT scan but is slightly larger. This measures fat density and is consistent with a benign adenoma. The right adrenal gland is normal. KIDNEYS AND URETERS: The kidneys are normal in size, shape, and attenuation. No hydronephrosis, hydroureter, or calculi seen. No perinephric stranding. BLADDER: Unremarkable. GASTROINTESTINAL TRACT: There are colonic diverticula present on the left without evidence of diverticulitis. A large stool burden is not present and there is no evidence of bowel obstruction. There is stool in the rectum but the sigmoid and left colon are empty. Some mucosal edema may be present in the sigmoid colon without gross pericolonic inflammatory change. The small and large bowel are otherwise unremarkable. The appendix is unremarkable. ABDOMINAL WALL: No significant hernia is appreciated. There is a tiny periumbilical hernia seen containing only fat. LYMPH NODES: No retroperitoneal lymphadenopathy. VASCULAR: Calcific atherosclerotic changes are present in the aorta and iliofemoral vessels. There is no evidence of an abdominal aortic aneurysm. PELVIC VISCERA: The uterus and adnexa are unremarkable. OSSEOUS STRUCTURES: Unremarkable. CT/CT abdomen pelvis wo IV con IMPRESSION: 1. A large stool burden is not present. There is some mucosal edema in the sigmoid colon without gross pericolonic inflammatory change. Findings could represent mild colitis. 2. Incidental note made of enlarged fatty liver, cholecystectomy, benign left adrenal adenoma, colonic diverticulosis without diverticulitis and other findings described above. Fleischner guidelines were followed.
--- NOTE | ~2024-04-17 | US_ITS ---
EXAMINATION: US ABDOMEN LIMITED CLINICAL INFORMATION: Transaminitis and right upper quadrant. COMPARISON: CT scan from the same day area TECHNIQUE: Real-time imaging of the right upper quadrant abdominal viscera. FINDINGS: PANCREAS: Partially visualized pancreas is unremarkable. The tail is obscured by bowel LIVER: Liver is echogenic, heterogeneous, enlarged with the right lobe of the liver measured 19.3 cm. There is no nodularity of the surface. There is calcification in the right lobe of the liver measured 1.0 cm, possibly clip. There is no perihepatic ascites GALLBLADDER: Surgically absent COMMON BILE DUCT: Normal in caliber measuring 0.5 cm in diameter. RIGHT KIDNEY: Normal. No hydronephrosis. No renal calculi or focal parenchymal lesions. The kidney measures 11.4 cm in maximum dimension. FREE FLUID: None. US/US abdomen limited IMPRESSION: Hepatic steatosis and hepatomegaly. Status post cholecystectomy.
[2024-04-17 08:33] VITALS: BP 119/80; PULSE 110; RESP 20; TEMP 35.9; O2SAT 95; BMI 31.5
--- NOTE | 2024-04-17 08:42 | ED_ITS ---
HPI - General Adult General Chief complaint: General Medical Stated complaint: Rotator Cuff Surgery complications Time Seen by Provider: 04/17/24 08:41 Source: patient Mode of arrival: ambulatory Limitations: no limitations History of Present Illness ED Provider: Oz WESTON HPI narrative: 58-year-old female history of rotator cuff tear status post rotator cuff surgery postop day 5, hyperlipidemia, tendinitis, presenting to the emergency department for complaints of abdominal pain, constipation ongoing for the past 5 days. Patient states she has not had a bowel movement since her surgery not passing gas. Her abdomen hurts in her rectum feels full. Also reporting difficulty voiding X 2 days. Reports taking narcotics intermittently for pain control as well as tylenol 1000 mg q 4-6 hours. Trying OTC constipation meds w/o relief. No hx of bowel obstructions. No cp, sob, nausea, vomiting, headache, vision changes. Related Data Home Medications ?Medication ?Instructions ?Recorded ?Confirmed atorvastatin 20 mg tablet 20 mg PO DAILY 04/06/24 Previous Rx's ?Medication ?Instructions ?Recorded morphine 15 mg tablet,extended 15 mg PO Q12H 3 days #6 tabs 04/06/24 release (MS Contin) oxycodone-acetaminophen 5 mg-325 1 tab PO Q4-6H PRN pain 7 days #42 04/06/24 mg tablet (Percocet) tabs Allergies Allergy/AdvReac Type Severity Reaction Status Date / Time No Known Allergies Allergy Verified 04/17/24 08:35 Review of Systems 2 Review of Systems: Yes all other systems are reviewed and are negative PMFSH Past Medical History Attestation statement: The following information was validated with the patient. Source: old records reviewed and nursing notes reviewed Medical History Shoulder pain, left Vitamin D deficiency Hyperlipidemia Diarrhea GERD (gastroesophageal reflux disease) Bursitis Mammogram normal Normal Pap smear Annual physical exam Surgical History Hx of colonoscopy Hx of laparoscopy Hx of cholecystectomy History of knee surgery History of foot surgery History of shoulder surgery Hx of prior ablation treatment Family History Family History Father No problems noted. 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 Oriented X3.? No acute cardiopulmary distress.?Patient appears uncomforable Head: Normocephalic, atraumatic, no step-offs or deformities Eyes: Pupils equal, round and reactive to light.? Neck: Normal inspection.? Neck supple.? CVS: Normal heart rate and rhythm.? Pulses normal.? Respiratory: No respiratory distress.? Breath sounds normal.? Abdomen: Soft and diffusely tender diminished BS throughout .? Skin: Skin warm and dry.? Normal skin color.? Normal skin turgor.? Extremities: No lower extremity edema.? No calf ttp. 5/5 strength to bilateral upper and lower extremities + left arm in sling surgical dressing to L shoulder intact, clean and dry. Normal distal sensation. Normal hand auto washer. Back: No midline tenderness, no C-spine tenderness, full range of motion, no CVA tenderness bilaterally Neuro: Oriented X 3.? No motor deficit.? No sensory deficit. CN 2-12 intact Course Reevaluation(s) Reevaluation #1: Upon chart review it appears as though patient had a unremarkable surgery on 04/12/2024 without complications. Patient was discharged home with oxycodone and morphine status post procedure. Labs and imaging pending Time: 08:51 Reevaluation #2: large BM after enema. Bladder scan WNL. No need for catheter. Time: 09:52 Reevaluation #3: Patient's CBC no acute findings requiring intervention. Chemistry no acute electrolyte abnormalities meeting intervention. Patient does have strikingly elevated liver enzymes AST 141 ALT 828 ( ? due to excess tylenol), patient only drinks socially not often, alk-phos of 130. Patient's total bilirubin 0.8. Patient does not have exquisite tenderness to the right upper quadrant however will obtain imaging of liver to rule out stones. Time: 10:00 Additional Reevaluation(s): 1200- hepatic steatosis and hepatomegaly status post cholecystectomy. No stones in the common bile duct. CT from 200 pelvis large stool burden is not present, imaging was obtained after patient had a very large bowel movement. There is some mucosal edema in the sigmoid colon without gross. Colonic inflammatory changes. CT scan suggests possible colitis however after bowel movement patient has no abdominal pain no abdominal tenderness on exam, no diarrhea. No indication for antibiotics, no white count or fever. Incidental note of enlarged fatty liver cholecystectomy benign left adrenal adenoma, colonic diverticulosis without diverticulitis. 1330- I did add salicylates and acetaminophen to patient's laboratory studies. Both of which were negative. I also added Lyme testing and tick panel. These are pending. 1400- I did discuss this case with Gastroenterology Adelia Garsia, recommends prompt GI follow-up and for patient to return with any new or worsening symptoms. Patient tolerating p.o.. Reports abdominal pain is much better. I am going to educate patient on proper Tylenol use to not exceed 3000 mg a day. Will have her follow-up with GI call and schedule an appointment today. Patient is having normal bowel movements multiple while in the department. Also having normal urinary habits. She has not retaining urine. No longer having back pain. Patient appears much better at this time then when she came in earlier. Educated patient on diagnosis and treatment plan, answered all question, patient verbalizes understanding. At this time patient will be discharged home, advised to return with new or worsening symptoms. Educated on worrisome signs and symptoms and when to return. At this time I feel comfortable discharge home. 1412- GI evaluationg patient at the bedside and will setup repeat labs for patient Medications Administered Discontinued Medications Generic Name Dose Route Start Last Admin Trade Name Sirisha PRN Reason Stop Dose Admin Bisacodyl 10 mg 04/17/24 08:46 04/17/24 09:24 Bisacodyl 5 Mg Tablet.Dr ORDONEZ 04/17/24 08:47 10 mg ONCE ONE Administration Hydromorphone HCl 0.5 mg 04/17/24 09:04 04/17/24 09:24 Hydromorphone Hcl 0.5 Mg/0.5 Ml Syringe IVPUSH 04/17/24 09:05 0.5 mg ONCE ONE Administration Protocol Medical Decision Making Medical Decision Making [facility] Narrative: 0845 58 yo f s/p rotator cuff surgery 5 days ago presents w/ abdominal pain , and constipation X 5 days and difficulty voiding X2 days. PE diffuse abd tenderness Hx and pe concerning for function constipation likely due to opiates vs obstruction. No signs of acute abdomen, diverticulitis, appendicitis, pancreatitis, cholecystitis . Will rule out uti possible cystitis. No signs of pylo, cauda equina, epidural abscess, cord compression Plan- labs, imaging,meds Differential Diagnosis Differential Diagnoses: The differential diagnosis associated with the presentation includes Hx and pe concerning for function constipation likely due to opiates vs obstruction. No signs of acute abdomen, diverticulitis, appendicitis, pancreatitis, cholecystitis . Will rule out uti possible cystitis. No signs of pylo, cauda equina, epidural abscess, cord compression Admission/Observation Consideration of admission/observation: Escalation of care including admission/observation considered possible Lab Data [facility] Lab Attestation statement: I reviewed the patient's lab results. 04/17/24 09:31 04/17/24 09:31 Labs: Lab Results 04/17/24 04/17/24 Range/Units 09:31 11:04 WBC 8.8 (4.8-10.8) X10*3/uL RBC 4.94 (4.20-5.50) X10*6/uL Hgb 15.6 (12.0-16.0) g/dl Hct 44.6 (37.0-47.0) % MCV 90.3 (80.0-98.0) fL MCH 31.6 (27.0-33.0) pg MCHC 35.0 (31.0-35.0) g/dl RDW 12.3 (11.0-16.0) % Plt Count 268 (160-400) X10*3/uL MPV 9.9 (9.4-12.3) fL Immature Gran % (Auto) 0.5 H (0.0-0.4) % Neut % (Auto) 77.0 H (45-73) % Lymph % (Auto) 14.3 L (20-40) % Dundy % (Auto) 6.8 (2-11) % Eos % (Auto) 1.1 (0-4) % Baso % (Auto) 0.3 (0-2) % Lymph # (Auto) 1.3 (1.2-4.9) X10*3/uL Dundy # (Auto) 0.6 (0.1-1.2) X10*3/uL Eos # (Auto) 0.1 (0.0-0.4) X10*3/uL Baso # (Auto) 0.0 (0.0-0.2) X10*3/uL Abs Immat Gran (auto) 0.04 H (0.00-0.03) X10*3/uL Absolute Neuts (auto) 6.7 (2.0-8.3) x10*3/uL Absolute Nucleated RBC 0.000 (0.0-0.012) X10*3/uL Nucleated RBC % (auto) 0.0 (0.0-0.2) /100WBC Sodium 139 (135-145) mmol/L Potassium 4.0 (3.3-5.1) mmol/L Chloride 98 (96-108) mmol/L Carbon Dioxide 26 (22-29) mmol/L Anion Gap 19 (12-20) BUN 11 (9-16) mg/dL Creatinine 0.73 (0.5-1.4) mg/dL Estim Creat Clear Calc 95.2 Estimated GFR > 60 Random Glucose 108 (60-115) mg/dL Calcium 10.4 H D (8.4-10.2) mg/dL Total Bilirubin 0.8 (0.0-1.0) mg/dL AST 141 H (5-31) U/L ALT 828 H (0-31) U/L Alkaline Phosphatase 130 H (39-117) U/L Total Protein 8.5 H (6.5-8.0) g/dL Albumin 4.7 (3.5-5.0) g/dL Salicylates < 5.0 L (15-30) mg/dL Acetaminophen < 3 (<30) mcg/mL Hepatitis A IgM Ab Nonreactive (Nonreactive) Hep Bs Antigen Negative (Negative) Hep Bs Antibody REACTIVE (Nonreactive) Hep B Core Total Ab Nonreactive (Nonreactive) Hepatitis C Ab (EIA) Nonreactive (Nonreactive) Independent Interpretation I performed an independent interpretation of an: CT Scan Radiology Impression Discussion of test interpretation with radiology: I have reviewed the radiologist's reading. External Record Review External record reviewed: Inpatient record, Office record, Outpatient record, Prior outpatient labs, Prior outpatient radiology, Primary care record and Outside ED record Prescription Management I considered prescription management with: Pain Medication (on opiates for pain control ) Chronic Conditions Patient?s care impacted by: Other (See HPI ) Critical Care Time Critical Care Time Critical Care Time: Yes Total Critical Care Time: 35 Attestation: I attest to this time spent taking care of the patient, obtaining history, physical, reviewing labs, imaging, speaking to my attending, specialist or hospitalist. Discharge Plan Discharge Clinical Impression: Hepatic steatosis, Constipation, Transaminitis Patient Disposition: Home, Self-Care Instructions: Liver Disease Diet (DC) Additional Instructions: Take your medications as prescribed. If you were prescribed antibiotics today, it is important that you take your medication to their entirety, do not skip any doses, do not finish them early. Follow-up with your primary care provider this week. Return to the emergency department with new or worsening symptoms. Such as fevers, chills, chest pain, shortness of breath, nausea, vomiting, dizziness, headache, vision changes, lethargy, changes in skin color, inability to have bowel movements or urinate properly. In case of emergency call 911 Your liver enzymes were high when compared to her baseline.Please follow-up with GI. Call today to schedule an appointment preferably within the next week Please do not take Tylenol as much as you were before. If needed you can do ibuprofen every 6 hours, Tylenol every 6 hours ( do not exceed 3,000 mg in a day) . Or just take ibuprofen without Tylenol. Tylenol could be harming your liver. I would like your LFTs repeated within 24 hours I believe your constipation was caused by a opiates Imaging results are as follows : CT/CT abdomen pelvis wo IV con IMPRESSION: 1. A large stool burden is not present. There is some mucosal edema in the sigmoid colon without gross pericolonic inflammatory change. Findings could represent mild colitis. 2. Incidental note made of enlarged fatty liver, cholecystectomy, benign left adrenal adenoma, colonic diverticulosis without diverticulitis and other findings described above. Fleischner guidelines were followed. US/US abdomen limited IMPRESSION: Hepatic steatosis and hepatomegaly. Status post cholecystectomy. Prescriptions: No Action atorvastatin 20 mg tablet 20 mg PO DAILY morphine [MS Contin] 15 mg tablet extended release 15 mg PO Q12H 3 Days Qty: 6 0RF Rx Instructions: Partial Fill upon patient request. oxycodone-acetaminophen [Percocet] 5-325 mg tablet 1 tab PO Q4-6H PRN (Reason: pain) 7 Days Qty: 42 0RF Rx Instructions: Partial Fill upon patient request. Referrals: [facility] [Provider Group] - 1 day Mahesh Mccartney MD [Primary Care Provider] - 2 days Stand Alone Forms: Work/School Release Print Language: Qatari
[2024-04-17] MEDS: HYDROmorphone HCl 0.5 MG/0.5 ML SYRINGE IVPUSH (09:24)
[2024-04-17] MEDS: bisacodyL 5 MG TABLET.DR 10 MG PO (09:24)
[2024-04-17 09:36] LABS: MANUAL DIFF FLAG NO
[2024-04-17 09:41] LABS: Basophils Percent Auto 0.3 % (0-2); Eosinophils Absolute Auto 0.1 X10*3/uL (0.0-0.4); Eosinophils Percent Auto 1.1 % (0-4); Hematocrit 44.6 % (37.0-47.0); Hemoglobin 15.6 g/dl (12.0-16.0); Imm Gran Abs Auto 0.04 X10*3/uL (0.00-0.03); Imm Gran Pct Auto 0.5 % (0.0-0.4); Lymphocytes Absolute Auto 1.3 X10*3/uL (1.2-4.9); Lymphocytes Percent Auto 14.3 % (20-40); Mean Corpuscular Hemoglobin 31.6 pg (27.0-33.0); Mean Corpuscular Volume 90.3 fL (80.0-98.0); Mean Platelet Volume 9.9 fL (9.4-12.3); Monocytes Absolute Auto 0.6 X10*3/uL (0.1-1.2); Monocytes Percent Auto 6.8 % (2-11); Neutrophils Absolute Auto 6.7 x10*3/uL (2.0-8.3); Platelet Count 268 X10*3/uL (160-400); Red Blood Count 4.94 X10*6/uL (4.20-5.50); Red Cell Distribution Width 12.3 % (11.0-16.0); White Blood Count 8.8 X10*3/uL (4.8-10.8)
--- NOTE | 2024-04-17 09:41 | PC.NURSE ---
Alert and oriented, reports last BM was last wed after rotator cuff surgery. States has not been able to fully void since sat. Medicated per mar, into bathroom and had large BM and able to void. Bladder scan prior to BM was 80mls. Reports left shoulder pain, medicated per dec. Friend at bedside
[2024-04-17 10:00] VITALS: BP 122/78; PULSE 89; TEMP 36.8; O2SAT 98
[2024-04-17 10:00] LABS: Alanine Aminotransferase 828 U/L (0-31); Albumin Level 4.7 g/dL (3.5-5.0); Alkaline Phosphatase 130 U/L (39-117); Anion Gap 19 (12-20); Aspartate Amino Transferase 141 U/L (5-31); Bilirubin Total 0.8 mg/dL (0.0-1.0); Blood Urea Nitrogen 11 mg/dL (9-16); Calcium 10.4 mg/dL (8.4-10.2); Carbon Dioxide 26 mmol/L (22-29); Chloride 98 mmol/L (96-108); Creatinine Clr Calc Pharmacy 95.2; Estimated Glomerular Filt Rate > 60; Glucose Random 108 mg/dL (60-115); Sodium 139 mmol/L (135-145); Total Protein 8.5 g/dL (6.5-8.0)
[2024-04-17 11:58] LABS: HBS Num1 13.69 mIU/mL (0-7.99); HBsAGNum1 0.28 S/CO (0.00-0.99); Hepatitis A Antibody IgM 0.14 Index (0-0.79); Hepatitis B Core Antibody Nonreactive (Nonreactive); Hepatitis B Surface Antigen Negative (Negative); ~HepC Num1 0.11 S/CO (0.00-0.79); ~Hepatitis A Antibody IgM Nonreactive (Nonreactive); ~Hepatitis B Surface Antibody REACTIVE (Nonreactive); ~Hepatitis C Antibody Nonreactive (Nonreactive)
[2024-04-17 12:00] VITALS: BP 133/79; PULSE 86; TEMP 36.9; O2SAT 97
--- NOTE | 2024-04-17 13:09 | PC.NURSE ---
patient resting comfortably on stretcher at this time, provided with water per request, patient endorsing relief from pain and states she had 2 bowel movements since enema. offering no complaints at this time.
[2024-04-17 13:45] LABS: Acetaminophen LAB < 3 mcg/mL (<30); Salicylate < 5.0 mg/dL (15-30)
[2024-04-17 14:43] LABS: Lipase 31 U/L (8-78)
[2024-04-17 15:14] VITALS: BP 133/76; PULSE 86; RESP 86; TEMP 36.9; O2SAT 98
[2024-04-20 08:56] LABS: Lyme Abs Screen <0.90 index
[2024-04-20 08:57] LABS: A. Phagocytphilium DNA,RT-PCR NOT DETECTED (NOT DETECTED); Babesia Microti DNA, RT-PCR NOT DETECTED (NOT DETECTED); Borrelia Miyamotoi,DNA RT-PCR NOT DETECTED (NOT DETECTED); E.Chaffeensis DNA RT-PCR NOT DETECTED (NOT DETECTED); Lyme(Borrelia ssp)DNA RT-PCR NOT DETECTED (NOT DETECTED)
== END 2024-04-17 15:15 | disposition home or self-care (01) ==
PROVIDERS: Physician Assistant; Emergency Provider Emergency Medicine; PCP Internal Medicine
DX: K76.0 Fatty (change of) liver, not elsewhere classified (principal); K59.00 Constipation, unspecified; R10.9 Unspecified abdominal pain; R74.01 Elevation of levels of liver transaminase levels; Z79.899 Other long term (current) drug therapy
CPT/HCPCS: 36415; 74176; 76705; 80053; 80143; 80179; 83690; 85025; 86617; 86618; 86704; 86706; 86709; 86803; 87340; 87468; 87469; 87478; 87484; 87798; 99284; J1170

== ENCOUNTER 2024-04-18 08:34 | Outpatient (REF) | payer OTHER, SELFPAY ==
[2024-04-18 09:56] LABS: Alanine Aminotransferase 533 U/L (0-31); Albumin Level 4.4 g/dL (3.5-5.0); Alkaline Phosphatase 107 U/L (39-117); Aspartate Amino Transferase 97 U/L (5-31); Bilirubin Direct 0.2 mg/dL (0.0-0.5); Bilirubin Total 0.6 mg/dL (0.0-1.0); Lipase 35 U/L (8-78); Total Protein 7.7 g/dL (6.5-8.0)
== END 2024-04-18 08:35 | disposition home or self-care (01) ==
LOC: HO.LAB 08:34
PROVIDERS: PCP Internal Medicine; Visit Provider Nurse Practitioner Family
DX: R10.9 Unspecified abdominal pain (principal); R74.01 Elevation of levels of liver transaminase levels
CPT/HCPCS: 36415; 80076; 83690

== ENCOUNTER 2024-04-20 13:12 | Outpatient (AMB) | payer OTHER, SELFPAY ==
--- NOTE | 2024-04-20 13:43 | MHC.OFFVIS ---
Intake Visit Reasons: PO LT RTC 04/12/24 NE Intake Note: Anna is a 58 year old female who presents today for a post op appointment s/p LT RTC 04/12/24 NE. Patient reports she is feeling very sore. She expresses that the pain medication upsets her stomach and she had to go to the emergency room. Allergies No Known Allergies Allergy (Verified 04/20/24 13:44) HPI HPI PO LT RTC 04/12/24 NE: Details: 58-year-old female who presents in the office today 8 days status post left shoulder rotator cuff repair, which was performed on 04/12/[address] Flor. ? ? The patient presented to the ED on 04/17/2024 with a complaint of abdominal pain secondary to constipation for 5 days status post surgery. Patient reported taking prescribed narcotics along with Tylenol 1,000 mg Q4-6H for pain. The ED recommended taking ibuprofen Q6H and Tylenol Q6H not to exceed 3,000 mg in a day. However, the preferred recommendation was Ibuprofen without Tylenol due to elevated liver enzymes. ? ? While in the office today, the patient reports feeling ?very? sore. She also reports the pain medication caused her GI upset, which lead to her being seen in the emergency room. ? PFSH Medical History Shoulder pain, left Vitamin D deficiency Hyperlipidemia Diarrhea GERD (gastroesophageal reflux disease) Bursitis Mammogram normal Normal Pap smear Annual physical exam Surgical History Hx of colonoscopy Hx of laparoscopy Hx of cholecystectomy History of knee surgery History of foot surgery History of shoulder surgery Hx of prior ablation treatment Family History Father No problems noted. 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 Sutures are intact. No surrounding erythema or drainage. No signs of infection. Forward flexion and abduction to 45 degrees. External rotation to neutral. NVI.? Assessment & Plan Assessment & Plan (1) S/P left rotator cuff repair: Onset Date: ~04/12/24 Comment: NE Code(s): Z98.890 - Other specified postprocedural states Category: Surgical Plan Ms. Espinoza is a 58-year-old female who presents in the office today 8 days status post left shoulder rotator cuff repair, which was performed on 04/12/[address] Flor. ? ? The patient presented to the ED on 04/17/2024 with a complaint of abdominal pain secondary to constipation for 5 days status post surgery. Patient reported taking prescribed narcotics along with Tylenol 1,000 mg Q4-6H for pain. The ED recommended taking ibuprofen Q6H and Tylenol Q6H not to exceed 3,000 mg in a day. However, the preferred recommendation was Ibuprofen without Tylenol due to elevated liver enzymes. ? ? While in the office today, the patient reports feeling ?very? sore. She also reports the pain medication caused her GI upset, which lead to her being seen in the emergency room.? ? Sutures were removed and steri-stripes were applied. The patient will remain in the sling until six weeks post-op. An order for physical therapy was made in the office today. The office will call the physical therapy office to get the patient scheduled as soon as possible. Follow-up will be in four weeks with Dr. Flor, or sooner if needed. Orders: Orders PT Evaluation and Treatment Today M75.102 - Unspecified rotator cuff tear or rupture of left shoulder, not specified as traumatic Patient Instructions: Scribed by Emily Fernando medical art therapist, for Joceline Parish PA-C on 04/20/2024 at 1:15 pm, EST.? Coding Level of Care Code Global (84891) Diagnoses S/P left rotator cuff repair Z98.890
== END 2024-04-20 14:20 | disposition home or self-care (01) ==
PROVIDERS: PCP Internal Medicine; Visit Provider Physician Assistant
DX: Z98.890 Other specified postprocedural states (principal)
CPT/HCPCS: 99024

== ENCOUNTER → 2024-04-20 13:12 | Outpatient (BNVA) | payer OTHER, SELFPAY | PROVIDERS: PCP Internal Medicine; Visit Provider Physician Assistant | DX: Z47.89 Encounter for other orthopedic aftercare (principal); Z98.890 Other specified postprocedural states | CPT/HCPCS: 99212 ==

== ENCOUNTER 2024-04-21 09:35 | Outpatient (REF) | payer OTHER, SELFPAY ==
[2024-04-21 09:58] LABS: Alanine Aminotransferase 216 U/L (0-31); Albumin Level 4.1 g/dL (3.5-5.0); Alkaline Phosphatase 101 U/L (39-117); Aspartate Amino Transferase 41 U/L (5-31); Bilirubin Direct 0.1 mg/dL (0.0-0.5); Bilirubin Total 0.4 mg/dL (0.0-1.0); Total Protein 7.4 g/dL (6.5-8.0)
== END 2024-04-21 09:36 | disposition home or self-care (01) ==
LOC: HO.LAB 09:35
PROVIDERS: PCP Internal Medicine; Visit Provider Internal Medicine
DX: R53.83 Other fatigue (principal); R74.01 Elevation of levels of liver transaminase levels
CPT/HCPCS: 36415; 80076

== ENCOUNTER 2024-04-25 12:58 | Outpatient (AMB) | payer OTHER, SELFPAY ==
--- NOTE | 2024-04-25 13:23 | MHC.OFFVIS ---
Vital Signs 04/25/24 13:32 Height 5 ft 6 in Weight 184 lb 4.903 oz BMI 29.7 BP 114/64 Blood Pressure Location Rt brachial Position Sitting Pulse 82 Pulse Source Pulse Oximeter Pulse Oximetry (%) 96 Oxygen Delivery Method Room Air Intake Visit Reasons: ER FOLLOW up 1 week Intake Note: Anna presents in office today for a scheduled 1 week FUV post ED Admission CC; It was suspected by ED Staff that the pt likely experienced opiate related constipation post surgical procedure dated 04/12/2024. Pt was well appearing prior to ED discharge. Pt reports that she is doing much better now. BMs and voiding seem normal per pt. Pt is still taking pain medication as needed but not as frequently. 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 Patient will follow-up in 6 months GERD (gastroesophageal reflux disease) Plan Patient takes her omeprazole and is doing well. Denies any GI symptoms. Patient was encouraged to drink plenty fluids, try to exercise and avoid dietary triggers. Patient is agreeable to plan of care and verbalizes understanding of instructions. I will see her in 6 months for follow-up however patient was instructed to call us sooner if she will experience any GI concerning symptoms. She was given the opportunity to ask questions and all questions answered. ? ED VISIT: HPI narrative: 58-year-old female history of rotator cuff tear status post rotator cuff surgery postop day 5, hyperlipidemia, tendinitis, presenting to the emergency department for complaints of abdominal pain, constipation ongoing for the past 5 days. Patient states she has not had a bowel movement since her surgery not passing gas. Her abdomen hurts in her rectum feels full. Also reporting difficulty voiding X 2 days. Reports taking narcotics intermittently for pain control as well as tylenol 1000 mg q 4-6 hours. Trying OTC constipation meds w/o relief. No hx of bowel obstructions. No cp, sob, nausea, vomiting, headache, vision changes. TODAY'S VISIT Patient is here today follow-up ED visit. Patient was seen in the ER for severe constipation incidental finding of transaminitis due to high doses of Tylenol intake over the last few months. I was called by ED provider while patient was in ED for recommendations. CT scan did not show any acute processes except for stool burden in the rectum, diverticulosis without diverticulitis, increase echogenicity of the liver and hepatomegaly. Ultrasound show hepatomegaly and increase echogenicity as well, consistent with hepatic steatosis. Patient reports to be feeling well. Denies any abdominal pain or discomfort. Moving her bowels better now. Her liver enzymes are going down at this time. Patient is not using Tylenol as much as she was in the past. Patient denies any melena, hematochezia, unintentional weight loss or ribbon like stools. Denies any dyspepsia, dysphagia or odynophagia PFSH Medical History Shoulder pain, left Vitamin D deficiency Hyperlipidemia Diarrhea GERD (gastroesophageal reflux disease) Bursitis Mammogram normal Normal Pap smear Annual physical exam Surgical History History of rotator cuff surgery (~04/12/24) Hx of colonoscopy Hx of laparoscopy Hx of cholecystectomy History of knee surgery History of foot surgery History of shoulder surgery Hx of prior ablation treatment Family History Father No problems noted. 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 Sexual orientation: Straight/Heterosexual Gender identity: Female Review of Systems Const Denies weight gain and Denies weight loss ENT Reports no additional complaints, Denies dysphagia and Denies odynophagia Card Reports no additional complaints Resp Reports no additional complaints GI Denies abdominal pain, Denies belching, Denies melena, Denies bloating, Denies change in bowel habits, Denies dysphagia, Denies excessive flatus, Denies dyspepsia, Denies heartburn, Denies diarrhea, Denies loose stools, Denies nausea, Denies odynophagia and Denies vomiting Reports no additional complaints Musc Reports no additional complaints Neuro Reports no additional complaints Psych Reports no additional complaints Endo Reports no additional complaints Physical Exam Vital Signs: Last Vital Signs Pulse 82 04/25/24 13:32 BP 114/64 04/25/24 13:32 Pulse Ox 96 04/25/24 13:32 Oxygen Delivery Method Room Air 04/25/24 13:32 BMI result Body Mass Index 29.7 Const General: healthy appearing and no acute distress Nutritional Appearance: obese Orientation/consciousness: patient oriented x3 Resp Effort & Inspection: normal respiratory effort, able to speak in complete sentences, no tracheal deviation and symmetric chest movement Auscultation: clear to auscultation bilaterally Cardio Rate: regular rate GI Inspection: Yes normal to inspection, No distended and Yes obesity Palpation (GI): Soft to palpation, not firm, nontender and No hepatosplenomegaly present Auscultation: normal bowel sounds General: Yes no CVA tenderness Back/Spine/Pelvis Back: no CVA tenderness Skin General skin exam: elasticity normal, turgor normal and dry skin Neuro General: patient oriented x3 Psych Appearance: grossly normal Mental Status: mental status grossly normal Results Reviewed Results Reviewed: Laboratory Tests 04/17/24 04/18/24 04/21/24 09:31 09:00 09:42 AST 141 H 97 H 41 H ALT 828 H 533 H 216 H Alkaline Phosphatase 130 H [address] SCAN 04/17/2024 IMPRESSION: 1. A large stool burden is not present. There is some mucosal edema in the sigmoid colon without gross pericolonic inflammatory change. Findings could represent mild colitis. 2. Incidental note made of enlarged fatty liver, cholecystectomy, benign left adrenal adenoma, colonic diverticulosis without diverticulitis and other findings described above. ABDOMINAL ULTRASOUND 04/17/2024 FINDINGS: PANCREAS: Partially visualized pancreas is unremarkable. The tail is obscured by bowel LIVER: Liver is echogenic, heterogeneous, enlarged with the right lobe of the liver measured 19.3 cm. There is no nodularity of the surface. There is calcification in the right lobe of the liver measured 1.0 cm, possibly clip. There is no perihepatic ascites GALLBLADDER: Surgically absent COMMON BILE DUCT: Normal in caliber measuring 0.5 cm in diameter. RIGHT KIDNEY: Normal. No hydronephrosis. No renal calculi or focal parenchymal lesions. The kidney measures 11.4 cm in maximum dimension. Assessment & Plan Assessment & Plan (1) Transaminitis: Code(s): R74.01 - Elevation of levels of liver transaminase levels Category: Medical (2) Constipation: Code(s): K59.00 - Constipation, unspecified Qualifiers: Constipation type: drug induced constipation Qualified Code(s): K59.03 - Drug induced constipation Plan Patient's liver enzymes are getting better. Increased echogenicity of the liver, most likely hepatic steatosis, however we will rule out any autoimmune disorder, hemochromatosis. Will send her for ultrasound with elastography for staging. Patient was encouraged to continue avoiding Tylenol, high-protein diet, avoid food high in fat. Exercise and weight loss encouraged. Patient will follow-up in 2 months, sooner on as needed basis. She is agreeable to this plan and verbalizes understanding of instructions. She was given the opportunity to ask questions and all questions answered. Thank you for allowing me to participate in her care Orders: Orders Alpha Fetoprotein 04/29/24 R79.89 - Other specified abnormal findings of blood chemistry Hepatitis A,B,C Profile 04/29/24 R7.89 - Other specified abnormal findings of blood chemistry Prothrombin Time INR 04/29/24 R74.8 - Abnormal levels of other serum enzymes C Reactive Protein 04/29/24 K58.9 - Irritable bowel syndrome without diarrhea Smooth Muscle Antibody 04/29/24 R79.89 - Other specified abnormal findings of blood chemistry Ceruloplasmin 04/29/24 R79.89 - Other specified abnormal findings of blood chemistry Ferritin 04/29/24 R74.8 - Abnormal levels of other serum enzymes Mitochondrial Antibody 04/29/24 R79.89 - Other specified abnormal findings of blood chemistry US abdomen pryor w elastography 04/25/24 R74.01 - Elevation of levels of liver transaminase levels Coding Level of Care Code Est Pt Level 4 (34448) Diagnoses Transaminitis R74.01 Drug-induced constipation K59.03 Constipation type: drug induced constipation Time Spent (min) 35 Comment 20 minutes spent with patient and additional 15 minutes spent reviewing her records
[2024-04-25 13:32] VITALS: BP 114/64; PULSE 82; O2SAT 96; BMI 29.7
== END 2024-04-25 13:57 | disposition home or self-care (01) ==
PROVIDERS: PCP Internal Medicine; Visit Provider Nurse Practitioner Family
DX: R74.01 Elevation of levels of liver transaminase levels (principal); K59.03 Drug induced constipation
CPT/HCPCS: 99214

== ENCOUNTER → 2024-04-25 12:58 | Outpatient (BNVA) | payer OTHER, SELFPAY | PROVIDERS: PCP Internal Medicine; Visit Provider Nurse Practitioner Family | DX: K21.9 Gastro-esophageal reflux disease without esophagitis (principal); K58.1 Irritable bowel syndrome with constipation; K59.03 Drug induced constipation; R74.01 Elevation of levels of liver transaminase levels; R79.89 Other specified abnormal findings of blood chemistry; R74.8 Abnormal levels of other serum enzymes; Z79.899 Other long term (current) drug therapy | CPT/HCPCS: 99212 ==

== ENCOUNTER 2024-04-29 09:47 | Outpatient (REF) | payer OTHER, SELFPAY ==
[2024-04-29 10:17] LABS: INTERNATIONAL NORM RATIO 0.9 (0.9-1.1); Prothrombin Time 10.6 SEC (11.1-13.3)
[2024-04-29 10:54] LABS: Alanine Aminotransferase 53 U/L (0-31); Albumin Level 4.3 g/dL (3.5-5.0); Alkaline Phosphatase 83 U/L (39-117); Aspartate Amino Transferase 19 U/L (5-31); Bilirubin Direct 0.2 mg/dL (0.0-0.5); Bilirubin Total 0.5 mg/dL (0.0-1.0); Total Protein 7.3 g/dL (6.5-8.0)
[2024-04-29 10:58] LABS: C Reactive Protein 0.11 mg/dL (< or = 0.50)
[2024-04-29 11:14] LABS: Ferritin 722 ng/mL (10-250)
[2024-05-01 07:29] LABS: Ceruloplasmin 21 mg/dL (14-48)
[2024-05-01 08:51] LABS: HBS Num1 12.26 mIU/mL (0-7.99); HBc Num1 0.24 S/CO (0.00-0.79); HBsAGNum1 0.28 S/CO (0.00-0.99); Hepatitis A Antibody IgM 0.21 Index (0-0.79); Hepatitis B Core Antibody Nonreactive (Nonreactive); Hepatitis B Surface Antigen Negative (Negative); ~HepC Num1 0.11 S/CO (0.00-0.79); ~Hepatitis A Antibody IgM Nonreactive (Nonreactive); ~Hepatitis B Surface Antibody REACTIVE (Nonreactive); ~Hepatitis C Antibody Nonreactive (Nonreactive)
[2024-05-01 15:28] LABS: Mitochondrial Antibodies NEGATIVE (NEGATIVE)
[2024-05-03 08:28] LABS: Alpha Fetoprotein 8.2 ng/mL
[2024-05-04 23:47] LABS: Smooth Muscle Antibody <20 U (<20)
== END 2024-04-29 09:48 | disposition home or self-care (01) ==
LOC: HO.LAB 09:47
PROVIDERS: Absent Provider Internal Medicine; PCP Internal Medicine; Visit Provider Nurse Practitioner Family
DX: R79.89 Other specified abnormal findings of blood chemistry (principal); R74.8 Abnormal levels of other serum enzymes; K58.9 Irritable bowel syndrome, unspecified
CPT/HCPCS: 36415; 80076; 82105; 82390; 82728; 85610; 86015; 86140; 86381; 86704; 86706; 86709; 86803; 87340

== ENCOUNTER 2024-05-09 08:50 | Outpatient (REF) | payer OTHER, SELFPAY ==
--- NOTE | ~2024-05-09 | US_ITS ---
EXAMINATION: US COMPLETE ABDOMEN WITH LIVER ELASTOGRAPHY CLINICAL INFORMATION: Elevation of levels of liver transaminase levels COMPARISON: Ultrasound abdomen April 17, 2024. CT scan abdomen pelvis April 17, 2024. TECHNIQUE: Real-time imaging of the abdominal viscera. Noninvasive ultrasound liver fibrosis assessment is performed using Luis Alfredo ElastPQ point quantification shear wave elastography (2D-SWE) with a C5-2 MHz transducer. Multiple elastography samples are obtained. FINDINGS: PANCREAS: Normal. The visualized pancreatic head and body are normal in appearance. The remainder of the pancreas is obscured from visualization by the overlying bowel gas. ABDOMINAL AORTA: The proximal, middle, and distal aortic segments are normal in caliber. INFERIOR VENA CAVA: Visualized portions are normal. LIVER: Diffuse increased echogenicity of the parenchyma of liver. Focal sparing superior to the portal vein at the antony hepatis. No suspicious focal liver lesion. The right lobe measures 19.7 cm in length. The left lobe measures 14.9 cm in length. Portal flow is normal, hepatopedal. Shear wave liver elastography median stiffness is 1.4 m/s (reference: normal median stiffness is 1.3 m/s or less). IQR/median stiffness to assess sampling precision is 0.11 (reference: good quality data set is IQR/median stiffness of 0.15 or less). GALLBLADDER: Normal. The gallbladder is physiologically distended without evidence of stones, sludge, polyps, wall thickening or pericholecystic fluid. COMMON BILE DUCT: Normal in caliber measuring 0.9 cm in diameter. RIGHT KIDNEY: Normal. No hydronephrosis. No renal calculi or focal parenchymal lesions. The kidney measures 1.2 cm in maximum dimension. LEFT KIDNEY: Normal. No hydronephrosis. No renal calculi or suspicious focal parenchymal lesions. 1.1 cm lobulated cyst at the midpole. No follow-up imaging is recommended for simple renal cyst. The kidney measures 12.3 cm in maximum dimension. SPLEEN: Normal. The spleen measures 12 cm in maximum dimension. FREE FLUID: None. US/US abdomen comp w elastography IMPRESSION: 1. Increased echogenicity of liver parenchyma consistent with fatty change. 2. Liver elastography: In the absence of other known clinical signs, measurements rule out compensated advanced chronic liver disease. If there are known clinical signs, further testing may be needed for confirmation. REFERENCE: Society of Radiologists in Ultrasound Liver Stiffness Thresholds (2020): LIVER STIFFNESS THRESHOLDS: *Liver Stiffness equal or less than 1.3 m/s: High probability of being normal. *Liver Stiffness less than 1.7 m/s: In the absence of other known clinical signs, rules out compensated advanced chronic liver disease. *Liver Stiffness 1.7-2.1 m/s: Suggestive of compensated advanced chronic liver disease but need further test for confirmation. *Liver Stiffness over 2.1 m/s: Rules in compensated advanced chronic liver disease. *Liver Stiffness over 2.4 m/s: Suggestive of clinically significant portal hypertension. QUALITY OF DATA SET: *IQR/Median value equal or less than 0.15 implies a quality data set. *IQR/Median value over 0.15 implies a poor quality data set. SIGNIFICANT CHANGE FROM PRIOR EXAM: Significant change if liver stiffness measurement is 10% or greater from prior exam. OTHER CONSIDERATIONS: The stage of liver fibrosis may be overestimated in the setting of acute hepatitis, liver inflammation, elevated liver function tests, hepatic vascular congestion, obstructive cholestasis, non-fasting state, and infiltrative diseases such as amyloidosis and lymphoma. In some patients with NAFLD, the liver stiffness thresholds for compensated advanced chronic liver disease may be lower. In causes other than viral hepatitis and NAFLD, liver stiffness thresholds are not well established.
== END 2024-05-09 08:51 | disposition home or self-care (01) ==
LOC: HO.US 08:50
PROVIDERS: PCP Internal Medicine; Visit Provider Nurse Practitioner Family
DX: R74.01 Elevation of levels of liver transaminase levels (principal)
CPT/HCPCS: 76700; 76981

== ENCOUNTER 2024-05-18 12:59 | Outpatient (AMB) | payer OTHER, SELFPAY ==
--- NOTE | 2024-05-18 13:03 | MHC.OFFVIS ---
Vital Signs 05/18/24 13:05 Handedness Left Intake Visit Reasons: PO LT RTC 04/12/24 NE-follow up Intake Note: Anna is a 58 year old left hand dominant female who presents post operatively S/P Left RTC 04/12/24. Patient reports she started PT and it is tough. She express difficulty with external rotation and severe pain during and after her visits. She states [facility] wasn't able to get her an appointment until mid-April so she is going to [facility] in [place]. Accompanied by: Spouse Allergies No Known Allergies Allergy (Verified 05/18/24 13:05) HPI HPI PO LT RTC 04/12/24 NE-follow up: Details: 6 weeks post op doing well Stiffness in ER and pain anterior and at night Attending PT [facility] Medical History Shoulder pain, left Vitamin D deficiency Hyperlipidemia Diarrhea GERD (gastroesophageal reflux disease) Bursitis Mammogram normal Normal Pap smear Annual physical exam Surgical History History of rotator cuff surgery (~04/12/24) Hx of colonoscopy Hx of laparoscopy Hx of cholecystectomy History of knee surgery History of foot surgery History of shoulder surgery Hx of prior ablation treatment Family History Father No problems noted. 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
== END 2024-05-18 13:28 | disposition home or self-care (01) ==
PROVIDERS: PCP Internal Medicine; Visit Provider Orthopaedic Surgery
DX: Z98.890 Other specified postprocedural states (principal)
CPT/HCPCS: 99024

== ENCOUNTER → 2024-05-18 12:59 | Outpatient (BNVA) | payer OTHER, SELFPAY | PROVIDERS: PCP Internal Medicine; Visit Provider Orthopaedic Surgery | DX: Z47.89 Encounter for other orthopedic aftercare (principal); Z98.890 Other specified postprocedural states | CPT/HCPCS: 99212 ==

== ENCOUNTER 2024-06-29 12:30 | Outpatient (AMB) | payer OTHER, SELFPAY ==
--- NOTE | 2024-06-29 12:33 | A.OFFVIS_ITS ---
Intake Visit Reasons: PO LT RTC 04/12/24 NE-follow up Intake Note: Anna is a 58 year old left hand dominant female who presents today for a follow up of her Left Shoulder s/p Left RTC Repair 04/12/24. Patient reports that she is doing well and she would like to return to work. Allergies No Known Allergies Allergy (Verified 06/29/24 12:41) HPI HPI PO LT RTC 04/12/24 NE-follow up: Details: Since he comes in today almost 3 months status post left rotator cuff repair. She is doing well. She has no complaints. [facility] Medical History Shoulder pain, left Vitamin D deficiency Hyperlipidemia Diarrhea GERD (gastroesophageal reflux disease) Bursitis Mammogram normal Normal Pap smear Annual physical exam Surgical History History of rotator cuff surgery (~04/12/24) Hx of colonoscopy Hx of laparoscopy Hx of cholecystectomy History of knee surgery History of foot surgery History of shoulder surgery Hx of prior ablation treatment Family History Father No problems noted. 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 She may return to work as tolerated with no heavy overhead lifting. Coding Level of Care Code Global (85917) Diagnoses S/P left rotator cuff repair Z98.890
== END 2024-06-29 13:12 | disposition home or self-care (01) ==
PROVIDERS: PCP Internal Medicine; Visit Provider Orthopaedic Surgery
DX: Z98.890 Other specified postprocedural states (principal)
CPT/HCPCS: 99024

== ENCOUNTER → 2024-06-29 12:30 | Outpatient (BNVA) | payer OTHER, SELFPAY | PROVIDERS: PCP Internal Medicine; Visit Provider Orthopaedic Surgery | DX: Z47.89 Encounter for other orthopedic aftercare (principal); Z98.890 Other specified postprocedural states; Z87.39 Personal history of other diseases of the musculoskeletal system and connective tissue | CPT/HCPCS: 99212 ==

== ENCOUNTER → 2025-03-10 07:45 | Outpatient (BNV) | payer OTHER, SELFPAY | PROVIDERS: PCP Internal Medicine; Visit Provider Internal Medicine | DX: Z12.31 Encounter for screening mammogram for malignant neoplasm of breast (principal) | CPT/HCPCS: 77063; 77067 ==

== ENCOUNTER 2025-03-10 07:47 | Outpatient (REF) | payer OTHER, SELFPAY | END 2025-03-10 07:48 | disposition home or self-care (01) | LOC: HO.MAMMO 07:47 | PROVIDERS: PCP Internal Medicine; Visit Provider Internal Medicine | DX: Z12.31 Encounter for screening mammogram for malignant neoplasm of breast (principal) | CPT/HCPCS: 77063; 77067 ==

== ENCOUNTER 2025-06-08 10:40 | Outpatient (REF) | payer OTHER, SELFPAY ==
--- NOTE | ~2025-06-08 | XR_ITS ---
EXAMINATION: XR HIP 2 OR MORE VIEWS LEFT HISTORY: M25.559 - Pain in unspecified hip COMPARISON: Comparison is made with the prior examination dated 02/25/2021. FINDINGS: A single AP view of the pelvis and two views of the left hip are submitted. Osseous mineralization is normal. There is no fracture or dislocation. There is mild joint space narrowing. The soft tissues are unremarkable. XR/XR hip LT min 2V IMPRESSION: Mild joint space narrowing. Electronically signed by: Dm Navas MD 06/08/2025 11:34 AM EDT
--- OUTSIDE RECORDS SUMMARY | 2025-06-09 10:42 | XMS_ITS | Patient Health Record ---
Author Organization [facility] [place] Address [address] [place] [address] Care Team Providers Care Floating Derrick Operator Name Role Phone Mario Cabrear MD Primary Care Provider UnavailKoby Carrington Unavailable [phone] Reason For Referral No Information Medications Medication [...] X ray : Foot, right 2V 02/07/2015 [id number] Plate 03/04/2015 57106-Pzxtofkh Plate 02/07/201585266, J0702- INJECT or DRAIN, JOINT/BUR SA 02/07/201595887, J0702- INJECT or DRAIN, JOINT/BUR SA 03/04/201572476,[id number] TENDON SHEATH/LIGAMENT 1 12/07/201177158,[id number] TENDON SHEATH/LIGAMENT 0 11/16/201237671,[id number] TENDON SHEATH/LIGAMENT 0 12/13/2012 X ray : Ankle, right 3V 02/18/2015 Insurance Providers Payer Name Payer Address Payer Phone Subscriber Number Group Number Insured Name Patient Relationship to Insured Coverage Start Date Coverage End Date [facility] [address] [place] [phone] [phone] [id number] [id number] Anna Espinoza Self - patient is the insured Medical (General) History Medical History History ICD Code anxiety broken bones depression fibromyalgia chicken pox Surgical History Surgery Date(Month/Year) shoulder surgery 2009 knee surgery 2010 gall bladder bone surgery
--- OUTSIDE RECORDS SUMMARY | 2025-06-09 10:42 | XMS_ITS | Patient Health Record ---
Author Organization [facility] Address [address] [place] [address] Care Team Providers Care Supervisor Refining Name Role Phone Dm Sweet Unavailable [phone] Reason For Referral No Information Plan Of Treatment No Information
== END 2025-06-08 10:41 | disposition home or self-care (01) ==
LOC: HO.HOSX 10:40
PROVIDERS: Visit Provider Physician Assistant
DX: M25.552 Pain in left hip (principal); M70.62 Trochanteric bursitis, left hip
CPT/HCPCS: 20610; 73502; 99212; J1010; J2003

== ENCOUNTER 2025-06-08 11:13 | Outpatient (AMB) | payer OTHER, SELFPAY ==
--- OUTSIDE RECORDS SUMMARY | 2025-06-08 11:20 | XMS_ITS | Patient Health Record ---
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
--- OUTSIDE RECORDS SUMMARY | 2025-06-08 11:20 | XMS_ITS | Patient Health Record ---
[facility] Organization [facility] [place] Address [address] [place] [address] Care Team Providers Care Rollway Worker Name Role Phone Mario Cabrera MD Primary Care Provider UnavailKoby Carrington Unavailable [phone] Reason For Referral No Information Medications Medication SIG (Take, Route, Frequency, Duration) Notes Start Date End Date Status zzzASO Ankle/Foot Stabilizing AFO . As directed Wear Daily; Duration: as needed 11/25/2015 Active LORazepam Active Work Note . . .This patient has a severe ankle sprain and must wear cast boot and use scooter or crutches to work until further notice .; Duration: . 02/18/2015 Active Physical Therapy . . . 2-3x/week; Durat ion: 3-4 weeks 03/04/2015 Active Gabapentin Active Ambien Active Problems Problem Type SNOMED Code ICD Code Onset Dates Problem Status W/U Status Risk Notes Problem Information temporarily unavailable Bursitis (727.3) Active confirmed Problem Information temporarily unavailable Pain in Limb (729.5) Active confirmed Problem Information temporarily unavailable Flat Foot, Congenital (754.61) Active confirmed Problem Information temporarily unavailable Ankle Sprain (845.00) Active confirmed Problem Information temporarily unavailable Edema (782.3) Active confirmed Problem Information temporarily unavailable Myositis (729.1) Active confirmed Problem Information temporarily unavailable Pain in Limb (729.5) Active confirmed Problem Information temporarily unavailable Plantar Fasciitis (728.71) Active confirmed Problem Information temporarily unavailable Calcaneal spur (726.73) Active confirmed Plan Of Treatment Pending Test Test Name Order Date X ray : Foot, left 2V 02/07/2015 X ray : Foot, right 2V 10/03/2012 X ray : Foot, right 2V 02/07/2015 [id number] Plate 03/04/2015 27321-Tiicgzdx Plate 02/07/201567668, J0702- INJECT or DRAIN, JOINT/BUR SA 02/07/201521183, J0702- INJECT or DRAIN, JOINT/BUR SA 03/04/201554306,[id number] TENDON SHEATH/LIGAMENT 1 12/07/201140836,[id number] TENDON SHEATH/LIGAMENT 0 11/16/201280795,[id number] TENDON SHEATH/LIGAMENT 0 12/13/2012 X ray : Ankle, right 3V 02/18/2015 Insurance Providers Payer Name Payer Address Payer Phone Subscriber Number Group Number Insured Name Patient Relationship to Insured Coverage Start Date Coverage End Date [facility] [address] [place] [phone] [phone] [id number] Anna Espinoza Self - patient is the insured Medical (General) History Medical History History ICD Code anxiety broken bones depression fibromyalgia chicken pox Surgical History Surgery Date(Month/Year) shoulder surgery 2009 knee surgery 2010 gall bladder bone surgery
[2025-06-08 11:26] VITALS: BMI 29.0
--- NOTE | 2025-06-08 11:26 | MHC.OFFVIS ---
Vital Signs 06/08/25 11:26 Height 5 ft 6 in Weight 180 lb BMI 29.0 Intake Visit Reasons: Newprob-Left hip pain-discuss cortisone inj. Intake Note: Anna is a 59 year old female who presents today for a evaluation of her left hip pain. Patient reports she has had this pain for a few years but states it has been getting progressively worse. 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 Pt denies any previous surgeries to her left hip. Pt has a hx of a cortisone injection on 02/2021. Pt states the injection did help greatly. Allergies No Known Allergies Allergy (Verified 06/08/25 11:26) HPI HPI Newprob-Left hip pain-discuss cortisone inj.: Details: Ms. Alexis meadows is a 59-year-old female who presents to the office today for evaluation of left lateral hip pain. She reports that in the past she had a cortisone injection into the left hip bursa [place] [address] Lau. This helped her greatly and she is looking for repeat injection while in the office today. Her pain is worsened with lying on the left side as well as ambulating for long periods of time. [facility] Medical History Shoulder pain, left Vitamin D deficiency Hyperlipidemia Diarrhea GERD (gastroesophageal reflux disease) Bursitis Mammogram normal Normal Pap smear Annual physical exam Surgical History History of rotator cuff surgery (~04/12/24) Hx of colonoscopy Hx of laparoscopy Hx of cholecystectomy History of knee surgery History of foot surgery History of shoulder surgery Hx of prior ablation treatment Family History Father No problems noted. 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 No ecchymosis, erythema, or edema. Full hip ROM in all planes. Tenderness to palpation over the greater trochanteric bursa. 5/5 strength with resisted hip flexion, knee extension, abduction, and abduction. Able to perform straight leg raise. NVI. Psych Appearance: grossly normal Mental Status: mental status grossly normal Attitude: cooperative Office Procedures AMB Joint Injection/Aspiration Joint Injection/Aspiration Primary Site: other (left hip greater trochanteric bursa) Prep: site was prepped using aseptic technique, ethochloride spray was applied and injection warnings given Injected: 80 mg of, DepoMedrol, with 8 mL of (2% plain lidocaine) and other (Greater trochanteric bursa) Approach Used: other (Lateral) Procedure: The patient tolerated the procedure well, but had some pain with the injection and there was some relief with the local anesthesia Coding 53804 - Glenohumeral/Tronchanteric Bursa/Intraarticular Procedure code (CPT) selection complete Assessment & Plan Assessment & Plan (1) Trochanteric bursitis, left hip: Code(s): M70.62 - Trochanteric bursitis, left hip Category: Medical Plan The patient was offered a cortisone injection in the left hip greater trochanteric bursa with 80 mg of DepoMedrol. The patient was explained the risks, benefits, and alternatives to receiving this injection. After receiving consent for the injection, the patient had the procedure done while in the office today. The patient tolerated the procedure well with no complications. Follow-up will be PRN, or sooner if needed X-rays of the BODYPART which were obtained while in the office today and were reviewed by me, Joceline Parish PA-C, revealed mild degenerative changes. Orders: Orders XR hip LT min 2V Today M25.559 - Pain in unspecified hip Coding Level of Care Code Est Pt Level 3 (21275) Diagnoses Trochanteric bursitis, left hip M70.62 CPT Codes Coding - Joint 7: 95321 - Glenohumeral/Tronchanteric Bursa/Intraarticular ([id number])
== END 2025-06-08 11:49 | disposition home or self-care (01) ==
LOC: HO.HOS 11:13
PROVIDERS: PCP Internal Medicine; Visit Provider Physician Assistant
DX: M70.62 Trochanteric bursitis, left hip (principal)
CPT/HCPCS: 20610; 99213

== ENCOUNTER → 2025-06-08 11:14 | Outpatient (BNV) | payer OTHER, SELFPAY | PROVIDERS: Visit Provider Radiology Diagnostic Radiology | DX: M16.12 Unilateral primary osteoarthritis, left hip (principal) | CPT/HCPCS: 73502 ==